=== PATIENT | male | born 1965 | race Caucasian/White ===

== ENCOUNTER 2021-10-03 09:48 | Inpatient (IN) | payer MEDICARE, OTHER ==
[~2021-10-03] VITALS: Ht 180.3 cm; Wt 86.2 kg
--- NOTE | 2021-10-03 09:48 | NUR ---
LORI 38 FROM [facility] C/O SEIZURE EPISODE LAST NIGHT AND R SIDED FOR 2 WEEKS. BS 120. PT ATTACHED TO MONITOR, SIEZURE PRECAUTIONS APPLIED. PT BREAHTING IS EVEN AND UNLABORED. DR HANDY AT BEDSIDE.
--- NOTE | 2021-10-03 09:53 | NUR ---
IV ESTABLISHED L AC 18G, LABS WERE DRAWN.
--- NOTE | 2021-10-03 09:53 | NUR ---
Loida hill in ED - 10/03/21 at 1012 by ETTA IV ESTABLISHED R AC 18G, LABS WERE DRAWN.
--- NOTE | 2021-10-03 10:17 | NUR ---
RECEIVED INFORMATION FROM [facility] PATIENT RESIDES AT: [address] [place] [address] PHONE# [phone] INSTRUMENT LENS INSPECTOR IS AMADOR.
--- NOTE | 2021-10-03 10:28 | NUR ---
PT TAKEN TO CT
[2021-10-03] MEDS ORDERED: LEVETIRACETAM (500MG) 1,000 MG in IV NS 0.9% 100 ML IV SCH (10:30)
[2021-10-03] MEDS ORDERED: IOHEXOL-350 100 ML VIAL IV ONE (10:31)
[2021-10-03] MEDS ORDERED: IV NS 0.9% 250 ML IV ONE (10:31)
[2021-10-03] MEDS ORDERED: LACT1CAP89 PO (10:38)
[2021-10-03] MEDS ORDERED: TRAZ-257 PO (10:38)
[2021-10-03] MEDS ORDERED: LEVE250T2 PO (10:38)
[2021-10-03] MEDS ORDERED: GUAI-671 PO (10:38)
[2021-10-03] MEDS ORDERED: QUET200T PO (10:38)
[2021-10-03] MEDS ORDERED: TEMA30CA PO (10:38)
[2021-10-03] MEDS ORDERED: MIRT-121 PO (10:38)
[2021-10-03] MEDS ORDERED: QUET50TA PO (10:38)
--- NOTE | 2021-10-03 10:42 | NUR ---
PT BACK FROM CT
[2021-10-03 10:46] LABS: BASOPHILS % (AUTO) 0.4 % (0.0-2.0); EOSINOPHILS % (AUTO) 0.7 % (0.0-6.0); HEMATOCRIT 44 % (39-51); HEMOGLOBIN 14.8 g/dL (13.5-17.5); LYMPHOCYTES # (AUTO) 2.4 K/uL (0.8-4.8); LYMPHOCYTES % (AUTO) 25.6 % (20.0-44.0); MEAN CORPUSCULAR HGB CONC 34 g/dl (31.0-36.0); MEAN CORPUSCULAR VOLUME 90 fL (80-96); MONOCYTES # (AUTO) 0.4 K/uL (0.1-1.30); MONOCYTES % (AUTO) 4.8 % (2.0-12.0); NEUTROPHILS # (AUTO) 6.3 K/uL (1.8-8.9); NEUTROPHILS % (AUTO) 68.5 % (43.0-81.0); PLATELET COUNT (AUTO) 408 K/uL (150-450); RED BLOOD CELL COUNT(AUTO) 4.89 MIL/uL (4.5-6.0); WHITE BLOOD COUNT (AUTO) 9.2 K/uL (4.3-11.0)
[2021-10-03 10:50] LABS: CALCIUM, SERUM 9.4 mg/dL (8.5-10.1); CREATININE 0.8 mg/dL (0.6-1.3)
[2021-10-03 10:55] LABS: BILIRUBIN,DIRECT 0.1 mg/dL (0.0-0.2); BILIRUBIN,TOTAL 0.4 mg/dL (0.2-1.0); TOTAL PROTEIN, SERUM 8.2 g/dL (6.4-8.2)
--- NOTE | 2021-10-03 10:58 | NUR ---
COVID TEST COLLECTED AND SENT
--- NOTE | 2021-10-03 11:03 | NUR ---
MOVE SHEET SUBMITTED AND CALLED FOR TELE BED.
--- NOTE | 2021-10-03 11:27 | NUR ---
TEXTED DR. CAROLINA
--- NOTE | 2021-10-03 11:32 | NUR ---
COVID RAPID TEST COLLECTED AND SENT
--- NOTE | 2021-10-03 13:44 | NUR ---
Loida hill in [facility] - 10/03/21 at 1346 by KIN bed 108
[2021-10-03] MEDS ORDERED: ACETAMINOPHEN ES 500 MG TABLET ONE (14:51)
--- NOTE | 2021-10-03 14:53 | NUR ---
GOT BED 306-2
[2021-10-03] MEDS ORDERED: ACETAMINOPHEN 325 MG TABLET PO ONE (15:00)
--- NOTE | 2021-10-03 15:01 | NUR ---
ATTEMPTED TO GIVE REPORT, NURSE IS NOT AVAILABLE, WILL CALL AGAIN
--- NOTE | 2021-10-03 15:11 | NUR ---
REPORT GIVEN TO NURSE ABELINO FOR STEWART
--- NOTE | 2021-10-03 15:51 | NUR ---
THE PATIENT IS TRANSFERED TO ASSIGNED ROOM IN STABLE CONDITION AND PER POLICY
[2021-10-03 16:00] VITALS: BP 114/81
--- NOTE | 2021-10-03 16:10 | NUR ---
INSURANCE COLLECTORDIE TESTER NOTE RECEIVED PATIENT VIA GURNEY, PATIENT IS A/OX 4. PATIENT IS BREATHING EVENLY AND NONLABORED ON ROOM AIR. NO SIGNS OF DISTRESS NOTED. PATIENTS VITALS BP 121/68, HR 91, RR 18 TEMP 98.8, O2 SAT 96% ON ROOM AIR. PATIENT COMPLAINS OF HEADACHE, WILL NOTIFY MD FOR ORDERS. PATIENT PLACED ON TELE MONITOR SHOWING NSR. PATIENT HAS IV ACCESS TO LAC # 18 PATENT AND INTACT. ABDOMEN SOFT NON TENDER. SKIN C/D/I. PATIENT WAS ORIENTED TO THE ROOM AND HOW TO USE THE CALL LIGHT. PATIENTS BELONGINGS ACCOUNTED FOR. SAFETY MEASURES IN PLACE BED LOW LOCKED AND CALL LIGHT WITHIN REACH. WILL CONTINUE TO MONITOR
[2021-10-03] MEDS ORDERED: ACETAMINOPHEN 325 MG TABLET PO PRN (17:00)
[2021-10-03] MEDS ORDERED: ONDANSETRON HCL/PF 4 MG/2 ML VIAL IVP PRN (17:00)
[2021-10-03] MEDS ORDERED: Z GUARD REMEDY 2 OZ OINT TP PRN (17:00)
[2021-10-03] MEDS: IV NS 0.9% 1,000 ML IV PRN (17:16)
[2021-10-03] MEDS: LEVETIRACETAM (250 MG) 250 MG TABLET PO SCH (17:16)
[2021-10-03] MEDS: MORPHINE SULFATE INJ 2 MG/ML DISP.SYRIN IV PRN ×2 (17:25→22:34)
--- NOTE | 2021-10-03 18:25 | NUR ---
FORESTRY ADVISER CLOSING NOTE PATIENT RESTING IN BED, PATIENT IS A/OX 4. PATIENT IS BREATHING EVENLY AND NONLABORED ON ROOM AIR. NO SIGNS OF DISTRESS NOTED. PATIENT DENIES PAIN OR DISCOMFORT AT THIS TIME. PATIENT WAS GIVEN PRN PAIN MEDICATIONS ORDERED, VITALS MAINTAINED WNL. PATIENT ON TELE MONITOR SHOWING NSR. PATIENT HAS IV ACCESS TO LAC # 18 PATENT AND INTACT RUNNING NS @ 75ML/HR. ALL MEDICATIONS GIVEN ORDERED. SAFETY MEASURES IN PLACE BED LOW LOCKED AND CALL LIGHT WITHIN REACH. WILL ENDORSE TO ONCOMING SHIFT
--- NOTE | 2021-10-03 19:15 | NUR ---
RETAIL SUPPORT ASSOCIATE OPENING NOTES RECEIVED PATIENT LAYING AWAKE IN BED. A/OX4. PATIENT WITH REGULAR AND UNLABORED BREATHING ON ROOM AIR, TOLERATED WELL. NO SIGNS AND SYMPTOMS OF DISTRESS NOTED. NO COMPLAIN OF PAIN OR DISCOMFORT AT THIS TIME. PATIENT ON TELE MONITOR READING SR @ 61 BPM. IV ACCESS LAC G #18 RUNNING NS @ 75MLS/HR. IV ACCESS INTACT AND PATENT. SAFETY PRECAUTIONS ENFORCED WITH BED LOCKED AND AT LOWEST POSITION. SIDERAILS UP X2. CALL LIGHT WITHIN REACH AT ALL TIMES WILL CONTINUE TO MONITOR PATIENT.
[2021-10-03 20:00] VITALS: BP 116/80
[2021-10-03 20:18] LABS: THYROID STIMULATING HORMONE 2.797 uIU/mL (0.358-3.74)
[2021-10-03] MEDS: QUETIAPINE FUMARATE 100 MG TABLET PO SCH (21:07)
[2021-10-03] MEDS: HEPARIN SODIUM, PORCINE 5000 UNITS/1 ML VIAL SQ SCH (21:08)
[2021-10-04] VITALS: BP 105/58
[2021-10-04 04:00] VITALS: BP 101/65
[2021-10-04 07:23] LABS: BASOPHILS % (AUTO) 0.2 % (0.0-2.0); EOSINOPHILS % (AUTO) 1.6 % (0.0-6.0); HEMATOCRIT 38 % (39-51); HEMOGLOBIN 12.9 g/dL (13.5-17.5); LYMPHOCYTES # (AUTO) 3.1 K/uL (0.8-4.8); LYMPHOCYTES % (AUTO) 39.9 % (20.0-44.0); MEAN CORPUSCULAR HGB CONC 34 g/dl (31.0-36.0); MEAN CORPUSCULAR VOLUME 89 fL (80-96); MONOCYTES # (AUTO) 0.5 K/uL (0.1-1.30); MONOCYTES % (AUTO) 6.6 % (2.0-12.0); NEUTROPHILS % (AUTO) 51.7 % (43.0-81.0); PLATELET COUNT (AUTO) 329 K/uL (150-450); RED BLOOD CELL COUNT(AUTO) 4.29 MIL/uL (4.5-6.0); WHITE BLOOD COUNT (AUTO) 7.7 K/uL (4.3-11.0)
--- NOTE | 2021-10-04 07:37 | NUR ---
DIRECTOR SOFTWARE DEVELOPMENT CLOSING NOTES PATIENT STILL LAYING AWAKE IN BED. A/OX4. PATIENT WITH REGULAR AND UNLABORED BREATHING ON ROOM AIR, TOLERATED WELL. NO SIGNS AND SYMPTOMS OF DISTRESS NOTED. NO COMPLAIN OF PAIN OR DISCOMFORT AT THIS TIME. PATIENT ON TELE MONITOR READING SR ABDULLAHI@ 56 BPM. IV ACCESS LAC G #18 RUNNING NS @ 75MLS/HR. IV ACCESS INTACT AND PATENT. SAFETY PRECAUTIONS ENFORCED WITH BED LOCKED AND AT LOWEST POSITION. SIDERAILS UP X2. CALL LIGHT WITHIN REACH AT ALL TIMES WILL ENDORSE STEWART TO DAY SHIFT NURSE.
[2021-10-04] MEDS: HEPARIN SODIUM, PORCINE 5000 UNITS/1 ML VIAL SQ SCH ×2 (08:17→21:07)
[2021-10-04] MEDS: LEVETIRACETAM (250 MG) 250 MG TABLET PO SCH ×2 (08:17→16:43)
[2021-10-04] MEDS: PANTOPRAZOLE 40 MG TABLET.DR PO SCH (08:17)
[2021-10-04 08:58] VITALS: BP 93/52
[2021-10-04] MEDS: MORPHINE SULFATE INJ 2 MG/ML DISP.SYRIN IV PRN ×5 (09:16→23:46)
[2021-10-04] MEDS: IV NS 0.9% 1,000 ML IV PRN ×2 (11:35→23:50)
[2021-10-04 12:18] VITALS: BP 115/75
--- NOTE | 2021-10-04 12:20 | NUR ---
PRODUCT ASSEMBLER NOTE PT REQUESTED ANXIETY MEDICATION, INFORMED DR. TIFF RIGGS WITH NEW ORDERS FOR ATIVAN 0.5MG PO Q6HR PRN ANXIETY; ORDERS READ BACK AND CARRIED OUT.
[2021-10-04] MEDS: LORAZEPAM 0.5 MG TABLET PO PRN ×2 (12:31→19:13)
[2021-10-04 14:11] LABS: ALBUMIN 3.1 g/dL (3.4-5.0); BILIRUBIN,TOTAL 0.3 mg/dL (0.2-1.0); CALCIUM, SERUM 6.7 mg/dL (8.5-10.1); CREATININE 0.8 mg/dL (0.6-1.3); MAGNESIUM 2.3 mg/dL (1.8-2.4); PHOSPHORUS 4.3 mg/dL (2.5-4.9); POTASSIUM 3.6 mmol/L (3.5-5.1); TOTAL PROTEIN, SERUM 6.5 g/dL (6.4-8.2)
[2021-10-04 15:50] VITALS: BP 106/64
--- NOTE | 2021-10-04 18:41 | NUR ---
INCOME TAX RETURN PREPARER CLOSING NOTES PT IS AWAKE IN BED. ALERT AND ORIENTED X4. NO S/SX OF ACUTE DISTRESS. BREATHING IS EVEN AND UNLABORED. PT ON ROOM AIR, TOLERATING WELL. IV ACCESS ON LAC #18 INTACT AND PATENT WITH NS 0.9% RUNNING AT 75MLS/HR. SEIZURE AND SAFETY MEASURES IN PLACE: BED LOCKED AND IN LOWEST POSITION, SR UP X2 AND PADDED, CALL LIGHT IS WITHIN EASY REACH. ALL NEEDS MET THROUGHOUT SHIFT. NO SEIZURE ACTIVITY NOTED DURING SHIFT. WILL ENDORSE CONTINUITY OF CARE TO ONCOMING SHIFT.
--- NOTE | 2021-10-04 19:35 | NUR ---
RN NOTES RECEIVED PATIENT AWAKE ON HIS BED, A/OX4, AMBULATORY, SR ON TELE MONITOR HR-62, NOT IN DISTRESS, PATIENT JUST RECEIVED PAIN MEDICATION FROM THE DAYSHIFT NURSE, CALL LIGHT WITHIN REACH, SIDERAILSUPX2, WILL CONTINUE TO MONITOR
[2021-10-04 20:00] VITALS: BP 124/94
[2021-10-04] MEDS: QUETIAPINE FUMARATE 100 MG TABLET PO SCH (21:08)
--- NOTE | 2021-10-04 23:45 | NUR ---
RN NOTES COMPLAINED OF TERRIBLE HEADACHE- MORPHINE 2 MG IV GIVEN ORDERED, V/S STABLE
[2021-10-05] VITALS (7 sets, daily range): BP systolic 106–148; BP diastolic 62–80
[2021-10-05] MEDS: MORPHINE SULFATE INJ 2 MG/ML DISP.SYRIN IV PRN ×4 (05:50→20:44)
--- NOTE | 2021-10-05 05:50 | NUR ---
RN NOTES COMPLAINED OF TERRIBLE HEADACHE, MORPHINE 2 MG IV GIVEN ORDERED, V/S STABLE
--- NOTE | 2021-10-05 06:29 | NUR ---
RN NOTES SLEEPING BUT AROUSABLE, NO PAIN NOTED, CALL LIGHT WITHIN REACH, SIDERAILSUPX2, PT. NEEDS ATTENDED
[2021-10-05 06:40] LABS: BASOPHILS % (AUTO) 0.3 % (0.0-2.0); EOSINOPHILS % (AUTO) 1.3 % (0.0-6.0); HEMATOCRIT 38 % (39-51); HEMOGLOBIN 12.7 g/dL (13.5-17.5); LYMPHOCYTES # (AUTO) 2.5 K/uL (0.8-4.8); MEAN CORPUSCULAR HGB CONC 34 g/dl (31.0-36.0); MEAN CORPUSCULAR VOLUME 89 fL (80-96); MONOCYTES # (AUTO) 0.4 K/uL (0.1-1.30); MONOCYTES % (AUTO) 5.5 % (2.0-12.0); NEUTROPHILS # (AUTO) 3.9 K/uL (1.8-8.9); NEUTROPHILS % (AUTO) 56.9 % (43.0-81.0); PLATELET COUNT (AUTO) 298 K/uL (150-450); RED BLOOD CELL COUNT(AUTO) 4.26 MIL/uL (4.5-6.0); WHITE BLOOD COUNT (AUTO) 6.8 K/uL (4.3-11.0)
[2021-10-05 06:59] LABS: CREATININE 0.8 mg/dL (0.6-1.3); MAGNESIUM 2.1 mg/dL (1.8-2.4); PHOSPHORUS 4.6 mg/dL (2.5-4.9); POTASSIUM 3.9 mmol/L (3.5-5.1)
--- NOTE | 2021-10-05 07:20 | NUR ---
CREATIVE COORDINATOR OPENING NOTES RECEIVED PT AWAKE IN BED. ALERT AND ORIENTED X4. NO S/SX OF ACUTE DISTRESS. BREATHING IS EVEN AND UNLABORED. PT ON ROOM AIR, TOLERATING WELL. IV ACCESS ON LAC #18 INTACT AND PATENT WITH NS 0.9% RUNNING AT 75MLS/HR. SAFETY MEASURES IN PLACE: BED LOCKED AND IN LOWEST POSITION, SR UP X2, CALL LIGHT IS WITHIN EASY REACH. WILL CONTINUE TO MONITOR PT FOR CHANGES IN CONDITION.
[2021-10-05] MEDS: LEVETIRACETAM (250 MG) 250 MG TABLET PO SCH ×2 (08:14→16:30)
[2021-10-05] MEDS: HEPARIN SODIUM, PORCINE 5000 UNITS/1 ML VIAL SQ SCH ×2 (08:15→20:42)
[2021-10-05] MEDS: PANTOPRAZOLE 40 MG TABLET.DR PO SCH (08:15)
[2021-10-05] MEDS: IV NS 0.9% 1,000 ML IV PRN (13:30)
--- NOTE | 2021-10-05 18:30 | NUR ---
BODY AND FENDER MECHANIC NOTES LFA#18 IV ACCESS REMOVED D/T PT PAIN, ITCHINESS AND TENDERNESS AT SITE;REINSERTED NEW IV ACCESS RHAND#20.
--- NOTE | 2021-10-05 18:54 | NUR ---
SALES ORDER ADMINISTRATOR CLOSING NOTES PT IS AWAKE IN BED. NO S/SX OF ACUTE DISTRESS. BREATHING IS EVEN AND UNLABORED. PT ON ROOM AIR, TOLERATING WELL. IV ACCESS ON RHAND20 INTACT AND PATENT WITH NS 0.9% RUNNING AT 75MLS/HR. SEIZURE AND SAFETY MEASURES MAINTAINED. BED LOCKED AND IN LOWEST POSITION, SR UP X2 AND PADDED, CALL LIGHT IS WITHIN EASY REACH. ALL NEEDS MET THROUGHOUT SHIFT. NO SEIZURE ACTIVITY NOTED DURING SHIFT. WILL ENDORSE CONTINUITY OF CARE TO ONCOMING SHIFT.
--- NOTE | 2021-10-05 19:30 | NUR ---
RN NOTES RECEIVED PATIENT WHO JUST WOKE UP AND ASKING FOR PAIN MEDICATION, EXPLAINED TO THE PATIENT IS NOT DUE AND WERE GOING TO CHECK HIS VITAL SIGN FIRST. CALL LIGHT WITHIN REACH, SIDERAILSUPX2, WILL CONTINUE TO MONITOR
--- NOTE | 2021-10-05 20:48 | NUR ---
RN NOTES PATIENT COMPLAINED OF TERRIBLE HEADACHE, MORPHINE 2 MG IV GIVEN ORDERED, V/S STABLE
[2021-10-05] MEDS: QUETIAPINE FUMARATE 100 MG TABLET PO SCH (22:04)
[2021-10-06] VITALS: BP 97/65
[2021-10-06 04:00] VITALS: BP 103/62
[2021-10-06] MEDS: IV NS 0.9% 1,000 ML IV PRN ×2 (05:04→18:42)
--- NOTE | 2021-10-06 06:28 | NUR ---
rn notes cpomplained of terrible headace, morphine 2 mg iv given as ordered, v/s stable, no SOB, pt. needs attended
[2021-10-06] MEDS: MORPHINE SULFATE INJ 2 MG/ML DISP.SYRIN IV PRN ×3 (06:42→19:32)
--- NOTE | 2021-10-06 07:31 | NUR ---
HUMAN RESOURCE STATISTICIAN OPENING NOTES RECEIVED PT AWAKE IN BED. ALERT AND ORIENTED X4. NO S/SX OF ACUTE DISTRESS. BREATHING IS EVEN AND UNLABORED. PT ON ROOM AIR, TOLERATING WELL. IV ACCESS ON RHAND#20 INTACT AND PATENT WITH NS 0.9% RUNNING AT 75MLS/HR. SAFETY MEASURES IN PLACE: BED LOCKED AND IN LOWEST POSITION, SR UP X2, CALL LIGHT IS WITHIN EASY REACH. WILL CONTINUE TO MONITOR PT FOR CHANGES IN CONDITION.
[2021-10-06 08:00] VITALS: BP 112/76
[2021-10-06] MEDS: LEVETIRACETAM (250 MG) 250 MG TABLET PO SCH ×2 (08:16→16:19)
[2021-10-06] MEDS: PANTOPRAZOLE 40 MG TABLET.DR PO SCH (08:16)
[2021-10-06] MEDS: HEPARIN SODIUM, PORCINE 5000 UNITS/1 ML VIAL SQ SCH ×2 (08:18→20:49)
--- NOTE | 2021-10-06 08:40 | NUR ---
SS Consult requested on 10/03/21 for mental health. SW ill follow up at a later time. Addendum: 10/06/21 at 0842 by ZOHAIB JACKSON Consult for homelessness requested as well. SW to follow up.
[2021-10-06 12:00] VITALS: BP 101/64
[2021-10-06 16:00] VITALS: BP 125/88
--- NOTE | 2021-10-06 16:00 | NUR ---
"SS Consult: SS Consult requested for homelessness. The pt. is a 56-year-old male patient who was admitted for multiple seizures per EMR. Upon SS consult, the pt. is A&O x 4 and makes good eye contact. The pt. appears well-groomed and presents with a euthymic mood and affect. The pt. remained cooperative with SW. SW explored pt.s mental health. Pt. states he experiences intermittent auditory hallucinations & paranoid delusions. Pt. states he has seen a psychiatrist in the past and is currently on Seroquel. SW explored pt.s living situation. Per the pt., he was last residing at a [facility]&C but he did not like it because there was drug use. Pt. states he has no support system. SW explored pt.s drug & ETOH use. Pt. denies drug or alcohol use. Pt. denies current SI/HI and denies current visual hallucinations. Pt. states he receives SSDI. Per pt. he is not sure if he can ambulate even with a wheelchair as he has right sided weakness due to the seizures. Plan: [phone][facility][phone] & To: [facility] for placement by CM. Pt. signed homeless waiver & it was placed in the pt.s chart. SW provided homeless resources to pt. and he refused them. Pt. stated he will have SW from SNF help him find a B&C. Resources offered include: Year-round shelters: [place] [address] [address] ; [facility] [place] [address] [place] [address]; [facility] [id number] [facility] [address] Winter Shelters: SPA 2 | [facility] Lilliana: Saida Address: Confidential (call for location ) Population Served: Coed # of Beds: 57 SPA 4 | [facility] Provider: [facility] Last Address: [address] [place] [address] # of Beds: 49 Population Served: Coed SPA 6 | [facility] Provider: Home at Last Address: [address] [facility], [address] # of Beds: 49 Population Served: Coed Kishan Driver [facility] Provider: Elizabeth Driver DCD Address: [address] [facility] [address] # of Beds: 20 Population Served: Women RANDELL Facility Provider: Home at Last Address: [address] [facility] [address] # of Beds: 30 Population Served: Women SPA 8 | [facility] Provider: Domitila Address: [address] [facility] [address] # of Beds: 65 Population Served: Coed Hygiene: [employer]: [address] [facility] ; [facility] [address] [facility] ; [facility] [address] [facility] . Food Resources: [place] [facility] at [facility]- [address] [facility]; Meet Each Need with Dignity ([facility]) [address] [facility]; [facility] Er Food Pantry [address] [facility]; [facility] [address] [facility]. Mental Health resources provided: [facility] [address] [place] [address] ; [facility] [address] [facility] [address], [place] [address] ; Veronica Matthew [facility] [address] [place] [address] ; [facility] [address] [place], [place] [phone] Healthcare Clinics: [facility] [address] [facility], [address] [place]. [place] ; [facility] [address] [facility] [address] [place] [address]; [facility] [address] [facility] [phone] Counseling--Outpatient [facility] [place] [address] [facility], [place] [address] (Specializes in in-depth psychotherapy for emotional distress: anxiety, depression, interpersonal conflicts, life transitions, childhood abuse) [facility] [address] [place] [address] (Assist with solving problem marital difficulties, separation & divorce, aging parents, & grief, chronic & terminal illness) [facility] [address] [place] [address] (Deal with loss & grief, anxiety, marital difficulties) Homebound/Mental Health Services [address] [facility] [address] [place] [address] (Provide in-home mental services to people who are incapable of leaving their homes) [facility] for Needs of the Elderly Senior Service/Resource Center [address] [facility] [place] [address] [facility] [address] [place] [address] PSYCHIATRIC OUTPATIENT SERVICES [facility] Partial Hospitalization and Intensive Outpatient Program (Managed Care and [place] Only)[address] [facility]. [facility] [phone] [facility] Partial Hospitalization and Outpatient [id number] [facility] [address] [place], [place] [phone] Critical access hospital [facility] [place] [id number] [facility] [address] [place], [place] [phone] [facility] Partial Hospitalization and Outpatient [id number] [place], [phone] Substance Abuse resources provided included: [facility] Substance Abuse Self-Helpline ([facility]) ; [facility] [address] [facility]. [place] [address] ; [facility] [place] [address] [facility] [address] ; [facility] [address] [place]. [place] [phone] ; [facility] [address] [facility] [address] ; [facility] [address] Laurent Santillan [facility] [address] ; [facility] [address] [facility] [phone] ; [facility] Substance Abuse Helpline([facility] ; [facility] ; [facility]; [facility] [place]; [facility] Laurent Santillan; [place]; [place]; [facility] [place]; [facility] [place]; Alcoholics Anonymous -SFV; Bd-Dxmd-Btqvldv ; Marijuana Anonymous -SFV; Narcotics Anonymous www.na.org;"
--- NOTE | 2021-10-06 19:15 | NUR ---
HYDROGEN OPERATOR NOTES RECEIVED LAYING COMFORTABLY ON BED A/O X4 WATCHING TV PROGRAM,BREATHING REGULAR,NOT IN ANY FORM OF DISTRESS,WITH IVF NS AT 75ML/HR RATE INFUSING VIA IV PUMP ON RIGHT HAND,SITE PATENT.SEIZURE PRECAUTION OBSERVED,SIDE RAILS PADDED FOR SAFETY.C/O HEADACHE AND RIGHT SIDE OF BODY 9/10 ON PAIN SCALE,WILL MEDICATE.CALL LIGHT IN REACH,NEEDS ANTICIPATED.
--- NOTE | 2021-10-06 19:32 | NUR ---
MS RN NOTES PAIN MANAGEMENT VITAL SIGNS WITH IN NORMAL LIMITS.MORPHINE 2MG IV GIVEN ORDERED FOR STRONG PAIN.WILL MONITOR FOR RELIEF.
[2021-10-06 20:00] VITALS: BP 128/75
[2021-10-06] MEDS: QUETIAPINE FUMARATE 100 MG TABLET PO SCH (21:11)
[2021-10-07] VITALS: BP 93/59
--- NOTE | 2021-10-07 01:00 | NUR ---
RAIL CAR PAINTER/SANDBLASTER NOTES NO SIGNIFICANT CHANGE IN STATUS.PAIN MANAGEMENT EFFECTIVE,ABLE TO SLEEP WELL AT NIGHT.POSSIBLE D/C TO SNF VS ARU,CASE MANAGEMENT FOR PLACEMENT.
[2021-10-07 04:00] VITALS: BP 113/70
[2021-10-07] MEDS: IV NS 0.9% 1,000 ML IV PRN (06:32)
--- NOTE | 2021-10-07 07:20 | NUR ---
HEEL SCORER OPEN NOTES PT IS AWAKE IN BED. NO S/SX OF ACUTE DISTRESS. BREATHING IS EVEN AND UNLABORED. PT ON ROOM AIR, TOLERATING WELL. IV ACCESS ON RHAND20 INTACT AND PATENT WITH NS 0.9% RUNNING AT 75MLS/HR. SEIZURE AND SAFETY MEASURES MAINTAINED. BED LOCKED AND IN LOWEST POSITION, SR UP X2 AND PADDED, CALL LIGHT IS WITHIN EASY REACH. WILL CONTINUITY TO MONITOR
[2021-10-07 08:00] VITALS: BP 112/75
[2021-10-07] MEDS: LEVETIRACETAM (250 MG) 250 MG TABLET PO SCH ×2 (08:33→17:07)
[2021-10-07] MEDS: PANTOPRAZOLE 40 MG TABLET.DR PO SCH (08:33)
[2021-10-07] MEDS: HEPARIN SODIUM, PORCINE 5000 UNITS/1 ML VIAL SQ SCH (08:34)
--- NOTE | 2021-10-07 10:45 | NUR ---
tele cyber forensic specialist: notes received pt in bed awake, a/ox4 with right sided weakness. instructed to call for assistance. will continue to monitor.
[2021-10-07] MEDS: MORPHINE SULFATE INJ 2 MG/ML DISP.SYRIN IV PRN ×2 (10:58→16:53)
--- NOTE | 2021-10-07 11:30 | NUR ---
tele shuttle buggy operator: notes veronique (septic technician) here and preparing pt for the test. call light within reach. will continue to monitor.
--- NOTE | 2021-10-07 13:05 | NUR ---
tele manufacturing applications engineer: notes eeg completed at 1230 per pt. result pending. pt for d'c planning to aru. will continue to monitor.
--- NOTE | 2021-10-07 14:25 | NUR ---
tele retail sales clerk: notes left message to dr. gan re: eeg done around 1100 with result pending, pt for d'c to snf at 1800. will continue to monitor.
--- NOTE | 2021-10-07 14:44 | NUR ---
tele freelance art director: notes dr. tubbs here and informed him that eeg was done, but result is pending. per dr. tubbs, pt is good to go without the result and says he has spoken with dr. gan and okay to go to snf. pt made aware re: d'c to snf at 1800.
[2021-10-07 16:00] VITALS: BP 124/81
--- NOTE | 2021-10-07 16:00 | NUR ---
tele oracle software engineer: notes report given to meghan corado) from [facility] for continuity of care. eta at 1800. will continue to monitor.
--- NOTE | 2021-10-07 16:44 | NUR ---
tele traffic maintenance supervisor: notes tele removed. discharge instructions given to pt and verbalized understanding. eta at 1800. ask pt about her sister thais (on the facesheet), stated, "i don't have a sister, that's my father's name but he passed." pt doesn't want anyone to be called re: d'c to snf. will continue to monitor.
--- NOTE | 2021-10-07 18:10 | NUR ---
tele staff field engineer: notes ambulance here and report given to one of the crew. h/l removed with tip intact. all belongings returned to pt. needs attended.
--- NOTE | 2021-10-07 18:20 | NUR ---
tele technical support agent: notes discharge to snf in stable condition via ambulance accompanied by 2 crew.
== END 2021-10-07 18:19 | DRG 101 ==
LOC: ER 09:59 → TELE 14:58
PROVIDERS: ADMIT Nurse Practitioner Acute Care; ATTEND Nurse Practitioner Acute Care
DX: G40.909 Epilepsy, unspecified, not intractable, without status epilepticus (principal); G81.91 Hemiplegia, unspecified affecting right dominant side; F20.9 Schizophrenia, unspecified; Z87.891 Personal history of nicotine dependence; G47.00 Insomnia, unspecified; Z87.820 Personal history of traumatic brain injury; R53.1 Weakness; S06.9X0S Unspecified intracranial injury without loss of consciousness, sequela; X58.XXXS Exposure to other specified factors, sequela; Z20.822 Contact with and (suspected) exposure to COVID-19
CPT/HCPCS: 36415; 70496-TC; 70498-TC; 71045-TC; 72125-TC; 80048-TC; 80053-TC; 80061-TC; 80076-TC; 83540-TC; 83735-TC; 84100-TC; 84443-TC; 85025-TC; 85730-TC; 87081-TC; 95819-TC; 97112-TC; 97116-TC; 97530-TC; C9803; G0378; J1644; J1953; J2270; J7030; J7050; Q9967

== ENCOUNTER 2023-07-26 03:33 | Emergency (ER) | payer MEDICARE, OTHER ==
[~2023-07-26] VITALS: Ht 180.3 cm; Wt 83.9 kg
[~2023-07-26 03:33] MED LIST: GUAI-671 PO; LACT1CAP89 PO; LEVE250T2 PO; MIRT-121 PO; QUET200T PO; QUET50TA PO; TEMA30CA PO; TRAZ-257 PO
[2023-07-26] MEDS ORDERED: QUETIAPINE FUMARATE 100 MG TABLET ONE ×2 (03:41→03:48)
[2023-07-26] MEDS ORDERED: MIRTAZAPINE 15 MG TABLET ONE (03:54)
[2023-07-26] MEDS ORDERED: MIRTAZAPINE 15 MG TABLET PO ONE (04:00)
[2023-07-26] MEDS ORDERED: QUETIAPINE FUMARATE 100 MG TABLET PO SCH (04:00)
[2023-07-26 05:10] VITALS: BP 145/88; TEMP 98; O2SAT 97
== END 2023-07-26 05:10 | disposition home or self-care (01) ==
LOC: ER 03:35
DX: F41.9 Anxiety disorder, unspecified (principal); F15.10 Other stimulant abuse, uncomplicated; F31.9 Bipolar disorder, unspecified; Z59.01 Sheltered homelessness

== ENCOUNTER 2023-07-26 07:25 | Emergency (ER) | payer MEDICARE, OTHER ==
[~2023-07-26] VITALS: Ht 180.3 cm; Wt 83.5 kg
[2023-07-26 08:04] VITALS: BP 121/68; TEMP 98.2; O2SAT 100
== END 2023-07-26 08:07 | disposition home or self-care (01) ==
LOC: ER 07:34
DX: F41.9 Anxiety disorder, unspecified (principal); F15.10 Other stimulant abuse, uncomplicated; F31.9 Bipolar disorder, unspecified; Z79.899 Other long term (current) drug therapy
CPT/HCPCS: 82962-TC